=== PATIENT | female | born 1985 | race Two or more races ===

== ENCOUNTER → 2019-12-20 | Outpatient (CLI) | payer OTHER | END | disposition home or self-care (01) | LOC: PRENATAL 10:22 | PROVIDERS: ATTEND Obstetrics & Gynecology | DX: O36.80X1 Pregnancy with inconclusive fetal viability, fetus 1 (principal) ==

== ENCOUNTER → 2020-02-07 | Outpatient (CLI) | payer OTHER | END | disposition home or self-care (01) | LOC: PRENATAL 08:00 | PROVIDERS: ATTEND Obstetrics & Gynecology Maternal & Fetal Medicine | DX: O35.3XX1 Maternal care for (suspected) damage to fetus from viral disease in mother, fetus 1 (principal); O98.512 Other viral diseases complicating pregnancy, second trimester; O35.0XX1 Maternal care for (suspected) central nervous system malformation in fetus, fetus 1; Z36.89 Encounter for other specified antenatal screening ==

== ENCOUNTER 2020-06-04 13:00 | Inpatient (IN) | payer OTHER ==
[~2020-06-04] VITALS: Ht 152.4 cm; Wt 61.7 kg
[2020-06-25] MEDS ORDERED: PRENATAL TABLE1 EAC1 PO (06:56)
[2020-06-25] MEDS ORDERED: VALTREX1000 MG PO (07:20)
[2020-06-25] MEDS ORDERED: IRON236 MG PO (07:21)
[2020-06-27] MEDS ORDERED: IRON236 MG PO (10:02)
[2020-06-27] MEDS ORDERED: DOCUSATE SODIU100 MG PO (10:02)
[2020-06-27] MEDS ORDERED: PRENATAL TABLE1 EAC1 PO (10:03)
== END 2020-06-27 11:29 | disposition home or self-care (01) | DRG 768 ==
LOC: OB/GYN 06-23 13:00 → LDR 06-25 04:37 → OB/GYN 06-25 23:44
PROVIDERS: ADMIT Obstetrics & Gynecology; ATTEND Obstetrics & Gynecology
PROC: 10E0XZZ Delivery of Products of Conception, External Approach (ICD-10-PCS; principal; 2020-06-25)
PROC: 0DQR0ZZ Repair Anal Sphincter, Open Approach (ICD-10-PCS; 2020-06-25)
PROC: 3E0P7VZ Introduction of Hormone into Female Reproductive, Via Natural or Artificial Opening (ICD-10-PCS; 2020-06-25)
PROC: 3E033VJ Introduction of Other Hormone into Peripheral Vein, Percutaneous Approach (ICD-10-PCS; 2020-06-25)
PROC: 0W8NXZZ Division of Female Perineum, External Approach (ICD-10-PCS; 2020-06-25)
PROC: 4A1HXFZ Monitoring of Products of Conception, Cardiac Rhythm, External Approach (ICD-10-PCS; 2020-06-25)
DX: O48.0 Post-term pregnancy (principal); Z37.0 Single live birth; O70.22 Third degree perineal laceration during delivery, IIIb; Z3A.40 40 weeks gestation of pregnancy; Z20.828 Contact with and (suspected) exposure to other viral communicable diseases